=== PATIENT | male | born 1970 | race Caucasian/White ===

== ENCOUNTER 2021-04-04 23:07 | Emergency (ER) | payer MEDICAID, OTHER ==
[2021-04-04] MEDS ORDERED: Acetaminophen/HYDROcodone 325-10 MG Tab PO ONE (23:08)
[2021-04-05 00:28] VITALS: BP 146/86; PULSE 106
--- NOTE | 2021-04-05 00:30 | EDM.PDOC ---
ED HPI GENERAL MEDICAL PROBLEM - General Stated Complaint: RIGHT KNEE PAIN, CAN'T BEND LEG Time Seen by Provider: 04/05/21 00:15 Source of Information: Reports: Patient History Limitations: Reports: No Limitations - History of Present Illness INITIAL COMMENTS - FREE TEXT/NARRATIVE: This 51 yo male patient reports to the ED with increased pain to his right knee and right great toe. The patient believes his pain is from gout. The patient reports he has previously been seen for gout and took medications for a while, but after the pain went away he stopped taking the medications. The patient denies any recent injury to the knee or foot. Onset: Gradual Duration: Day(s):, Constant, Getting Worse Location: Reports: Lower Extremity, Right Quality: Reports: Ache, Sharp, Stabbing Severity: Severe Improves with: Reports: None Worsens with: Reports: None Context: Reports: Other Associated Symptoms: Reports: No Other Symptoms Right Knee Pain Score (Numeric/FACES): 10 - Related Data Allergies Allergy/AdvReac Type Severity Reaction Status Date / Time No Known Allergies Allergy Verified 05/23/18 20:38 Home Meds: Home Meds Acetaminophen [Tylenol] 325 mg PO 04/05/21 [History] Past Medical History - Past Health History Medical/Surgical History: Denies Medical/Surgical History HEENT History: Reports: Impaired Vision Cardiovascular History: Reports: None Respiratory History: Reports: None Gastrointestinal History: Reports: None Genitourinary History: Reports: None Other Musculoskeletal History: tendon release right hand middle finger Neurological History: Reports: None Psychiatric History: Reports: None Endocrine/Metabolic History: Reports: None Hematologic History: Reports: None Immunologic History: Reports: None Oncologic (Cancer) History: Reports: None Dermatologic History: Reports: None Review of Systems - Review of Systems Review Of Systems: Comprehensive ROS is negative, except as noted in HPI. ED EXAM, GENERAL - Physical Exam Exam: See Below Exam Limited By: No Limitations General Appearance: Alert, WD/WN, Moderate Distress Eye Exam: Bilateral Eye: EOMI, Normal Inspection, PERRL Ears: Normal External Exam, Normal Canal, Hearing Grossly Normal, Normal TMs Nose: Normal Inspection, Normal Mucosa, No Blood Throat/Mouth: Normal Inspection, Normal Lips, Normal Teeth, Normal Gums, Normal Oropharynx, Normal Voice, No Airway Compromise Head: Atraumatic, Normocephalic Neck: Full Range of Motion Respiratory/Chest: No Respiratory Distress, Lungs Clear, Normal Breath Sounds, No Accessory Muscle Use Cardiovascular: Normal Peripheral Pulses, Regular Rate, Rhythm (Male) Exam: Deferred Rectal (Males) Exam: Deferred Extremities: Leg Pain (right knee tenderness along medial joint space and right great toe tenderness to palpation of MTP joint) Neurological: Alert, Oriented, CN II-XII Intact, Normal Cognition, Normal Gait, Normal Reflexes, No Motor/Sensory Deficits Psychiatric: Normal Affect, Normal Mood Lymphatic: No Adenopathy Course - Vital Signs Last Recorded V/S: Last Vital Signs Temp 100.5 F 04/05/21 00:24 Pulse 106 H 04/05/21 00:24 Resp 20 04/05/21 00:24 BP 146/86 H 04/05/21 00:24 Pulse Ox 100 04/05/21 00:24 - Orders/Labs/Meds Labs: Laboratory Tests 04/05/21 04/05/21 Range/Units 00:30 00:30 WBC 11.9 H (5.0-10.0) 10^3/uL RBC 5.35 (4.6-6.2) 10^6/uL Hgb 15.9 (14.0-18.0) g/dL Hct 47.8 (40.0-54.0) % MCV 89.3 (80-100) fL MCH 29.7 (27.0-34.0) pg MCHC 33.3 (33.0-35.0) g/dL Plt Count 239 (150-450) 10^3/uL Neut % (Auto) 65.1 (42.2-75.2) % Lymph % (Auto) 22.7 (20.5-50.1) % [place] % (Auto) 10.7 H (2-8) % Eos % (Auto) 1.2 (1.0-3.0) % Baso % (Auto) 0.3 (0.0-1.0) % Sodium 138 (136-145) mmol/L Potassium 4.2 (3.5-5.1) mmol/L Chloride 103 (98-107) mmol/L Carbon Dioxide 28 (21-32) mmol/L Anion Gap 11.2 (7-13) mEq/L BUN 17 (7-18) mg/dL Creatinine 1.36 H (0.70-1.30) mg/dL Est Cr Clr Drug Dosing 63.54 mL/min Estimated GFR (MDRD) 55 BUN/Creatinine Ratio 12.5 (No establ ref range) Glucose 117 H (70-99) mg/dL Uric Acid 7.6 H (3.5-7.2) mg/dL Calcium 8.6 (8.5-10.1) mg/dL Total Bilirubin 0.5 (0.2-1.0) mg/dL AST 10 L (15-37) U/L ALT 36 (16-63) U/L Alkaline Phosphatase 79 (46-116) U/L Total Protein 7.3 (6.4-8.2) g/dL Albumin 3.7 (3.4-5.0) g/dL Globulin 3.6 Albumin/Globulin Ratio 1.0 Meds: Medications Discontinued Medications Generic Name Dose Route Start Last Admin Trade Name Freq PRN Reason Stop Dose Admin Methylprednisolone Sodium Succinate 125 mg 04/05/21 00:56 Methylprednisolone Sodium Succinate 125 Mg/2 Ml Sdv IM 04/05/21 00:57 ONETIME ONE Departure - Departure Time of Disposition: 01:02 Disposition: Home, Self-Care 01 Condition: Fair Clinical Impression: Elevated blood uric acid level Gout of right knee Qualifiers: Gout etiology: unspecified cause Chronicity: acute Qualified Code(s): M10.9 - Gout, unspecified - Discharge Information *PRESCRIPTION DRUG MONITORING PROGRAM REVIEWED*: Not Applicable *COPY OF PRESCRIPTION DRUG MONITORING REPORT IN PATIENT KATHY: Not Applicable Instructions: Low-Purine Eating Plan Forms: ED Department Discharge Care Plan Goals: The patient was advised of the examination and lab results during the visit. The patient was given an injection of SoluMedrol while in the ED. The patient was discharged with a dose of [place] (10/325) #1 to take as needed for pain. The patient was also discharged with a script for Prednisone (20 mg) #10 to take 2 by mouth daily for 5 days. The patient was encourage to follow-up with his primary care facility for continued evaluation and treatment. If the patient has any additional symptoms or concerns, the patient should either return to the emergency department or visit his primary care facility. Sepsis Event Note (ED) - Focused Exam Vital Signs: Vital Signs Temp Pulse Resp BP Pulse Ox 04/05/21 00:24 100.5 F 106 H 20 146/86 H 100
[2021-04-05 00:55] LABS: ANION GAP 11.2 mEq/L (7-13)
[2021-04-05] MEDS ORDERED: methylPREDNISolone Sodium Succinate 125 MG/2 ML SDV IM ONE (00:56)
[2021-04-05] MEDS ORDERED: Acetaminophen/HYDROcodone 325-10 MG Tab ONE (01:02)
== END 2021-04-05 01:13 | disposition home or self-care (01) ==
LOC: DL.ED 23:07
DX: M10.9 Gout, unspecified (principal)
CPT/HCPCS: 36415; 80053; 84550; 85025; 96372; 99283; A9270-GY; J2930

== ENCOUNTER 2021-07-18 13:50 | Emergency (ER) | payer MEDICAID ==
[2021-07-18 14:25] VITALS: BP 163/105; PULSE 113
[2021-07-18] MEDS ORDERED: Lidocaine 1% 30 ML SDV INJECT ONE (14:47)
--- NOTE | 2021-07-18 14:53 | CR ---
PROCEDURE INFORMATION: Exam: XR Left Hand Exam date and time: 07/18/2021 2:42 PM Age: 51 years old Clinical indication: Other: Cut with skill saw TECHNIQUE: Imaging protocol: XR Left hand. Views: 1 or 2 views. Total images: 2 COMPARISON: No relevant prior studies available. FINDINGS: Bones/joints: Soft tissue defects distal 2nd and 3rd fingers. Comminuted/complex fracture distal tuft left 2nd finger. Multiple small bone fragments in this region. Is also a complex comminuted fracture at the base of the 3rd distal phalanx which extends intra-articular. Suggestion of tiny fracture fragment off the articular surface of the distal 3rd middle phalanx as well. Multiple fracture fragments. Soft tissues: See "Bones/joints" finding. IMPRESSION: 1. Comminuted fracture distal tuft left 2nd finger as well as a comminuted intra-articular fracture at the base of the 3rd DIP joint. 2. Associated soft tissue defects distal left 2nd and 3rd fingers.
--- NOTE | 2021-07-18 14:57 | EDM.PDOC ---
<Whitney Echevarria - Last Filed: 07/18/21 14:54> ED HPI GENERAL MEDICAL PROBLEM - General Chief Complaint: Laceration Stated Complaint: [id number] CUT FINGERS Time Seen by Provider: 07/18/21 15:15 Left Finger-Index Pain Score (Numeric/FACES): 5 - Related Data Allergies Allergy/AdvReac Type Severity Reaction Status Date / Time No Known Allergies Allergy Verified 07/18/21 14:20 Home Meds: Home Meds Acetaminophen [Tylenol] 325 mg PO 04/05/21 [History] Past Medical History - Past Health History Medical/Surgical History: Denies Medical/Surgical History HEENT History: Reports: Impaired Vision Cardiovascular History: Reports: None Respiratory History: Reports: None Gastrointestinal History: Reports: None Genitourinary History: Reports: None Musculoskeletal History: Reports: Gout Other Musculoskeletal History: tendon release right hand middle finger Neurological History: Reports: None Psychiatric History: Reports: None Endocrine/Metabolic History: Reports: None Hematologic History: Reports: None Immunologic History: Reports: None Oncologic (Cancer) History: Reports: None Dermatologic History: Reports: None - Infectious Disease History Infectious Disease History: Reports: None Social & Family History - Family History Family Medical History: No Pertinent Family History - Tobacco Use Tobacco Use Status *Q: Never Tobacco User Second Hand Smoke Exposure: No - Caffeine Use Caffeine Use: Reports: Coffee - Recreational Drug Use Recreational Drug Use: No Course - Radiology Interpretation Free Text/Narrative:: Left hand xray; [facility] Final Radiology Report Call: [phone] assistance Online chat: [email or web address] Name: HU COX Age: 51Years M Date: 07/18/2021 SSN: -- : [id number] Study: CR HAND 2V LT Requesting Physician: Whitney Echevarria Images: 2 Addl Studies: Provided Clinical History: cut with skill saw Contrast: Contrast Medium: Contrast Amount: Contrast Method: CONFIDENTIALITY STATEMENT This report is intended only for use by the referring physician, and only in accordance with law. If you received this in error, call [phone]. Page 1 of 1 PROCEDURE INFORMATION: Exam: XR Left Hand Exam date and time: 07/18/2021 2:42 PM Age: 51 years old Clinical indication: Other: Cut with skill saw TECHNIQUE: Imaging protocol: XR Left hand. Views: 1 or 2 views. Total images: 2 COMPARISON: No relevant prior studies available. FINDINGS: Bones/joints: Soft tissue defects distal 2nd and 3rd fingers. Comminuted/complex fracture distal tuft left 2nd finger. Multiple small bone fragments in this region. Is also a complex comminuted fracture at the base of the 3rd distal phalanx which extends intra-articular. Suggestion of tiny fracture fragment off the articular surface of the distal 3rd middle phalanx as well. Multiple fracture fragments. Soft tissues: See "Bones/joints" finding. IMPRESSION: 1. Comminuted fracture distal tuft left 2nd finger as well as a comminuted intra-articular fracture at the base of the 3rd DIP joint. 2. Associated soft tissue defects distal left 2nd and 3rd fingers. Thank you for allowing us to participate in the care of your patient. Dictated and Authenticated by: Delmer Awad MD 07/18/2021 2:53 PM Central Time ([place] & [place]) See rad report Departure - Departure Disposition: Home, Self-Care 01 Clinical Impression: Finger laceration Qualifiers: Encounter type: initial encounter Finger: index finger Damage to nail status: with damage Foreign body presence: without foreign body Laterality: unspecified laterality Qualified Code(s): S61.318A - Laceration without foreign body of other finger with damage to nail, initial encounter - Discharge Information Instructions: Laceration Care, Adult, [id number] Referrals: Uriel Tsang [Primary Care Provider] - Forms: ED Department Discharge Additional Instructions: RX: keflex Keep wound clean and dry for 24 hours. Use Neosporin or bacitracin on the wound and keep it bandaged. Keep stitches in for 10-14 days. If any new symptoms or concerns develop contact your primary care facility or return to the ER. Sepsis Event Note (ED) - Evaluation Sepsis Screening Result: No Definite Risk <Laurent Finley - Last Filed: 07/18/21 16:53> ED HPI GENERAL MEDICAL PROBLEM - General Source of Information: Reports: Patient History Limitations: Reports: No Limitations - History of Present Illness INITIAL COMMENTS - FREE TEXT/NARRATIVE: 51 y/o M was cutting a board with his skill saw above his head and accidently cut his 3rd adn 4th fingers with the saw on his L hand. Pt states his sensation and motor function are still intact. The bleeding was controlled with direct pressure. Pt drove himself to the ER. Tetanus is not up to date. Onset: Today Duration: Hour(s): ED ROS GENERAL - Review of Systems Review Of Systems: Comprehensive ROS is negative, except as noted in HPI. ED EXAM, SKIN/RASH Exam: See Below Exam Limited By: No Limitations General Appearance: Alert, No Apparent Distress Respiratory/Chest: No Respiratory Distress, Lungs Clear, Normal Breath Sounds, No Accessory Muscle Use, Chest Non-Tender Cardiovascular: Normal Peripheral Pulses, Regular Rate, Rhythm, No Edema, No Gallop, No JVD, No Murmur, No Rub Extremities: Other (3rd finger lac starts at the anterior pad of the finger tip and wraps around to the posterior finger lateral to the nail about 5cm long. ) ED SKIN PROCEDURES - Laceration/Wound Repair Left Lower Digit - 2nd (Index) Appearance: Subcutaneous Local Anesthesia - Lidocaine (Xylocaine): 1% Plain Local Anesthetic Volume: 4cc Skin Prep: Saline Exploration/Debridement/Repair: Wound Explored Closed with: Sutures Lac/Wound length In cm: 4 Suture Size: 4-0 # of Sutures: 8 Suture Type: Interrupted Sterile Dressing Applied: Nurse Tetanus Status Addressed: Yes Complications: No Left Upper Digit - 3rd (Middle) Appearance: Subcutaneous Anesthetic Type: Local Local Anesthesia - Lidocaine (Xylocaine): 1% Plain Local Anesthetic Volume: 4cc Skin Prep: Saline Exploration/Debridement/Repair: Wound Explored Closed with: Sutures Lac/Wound length In cm: 6 Suture Size: 4-0 Suture Type: Interrupted Sterile Dressing Applied: Nurse Tetanus Status Addressed: Yes Complications: No Course - Vital Signs Last Recorded V/S: Last Vital Signs Temp 97.5 F 07/18/21 14:24 Pulse 113 H 07/18/21 14:24 Resp 16 07/18/21 14:24 BP 163/105 H 07/18/21 14:24 Pulse Ox 97 07/18/21 14:24 - Orders/Labs/Meds Orders: Active Orders 24 hr Category Date Time Status Vaccine to be Administered/Admin Charge [RC] ASDIRECTED Care 07/18/21 15:08 Active Meds: Medications Discontinued Medications Generic Name Dose Route Start Last Admin Trade Name Freq PRN Reason Stop Dose Admin Bacitracin 1 dose 07/18/21 16:36 07/18/21 16:39 Bacitracin Oint 1 Gm U/D Packet TOP 07/18/21 16:37 1 dose ONETIME ONE Administration Diphtheria/Tetanus/Acell Pertussis 0.5 ml 07/18/21 15:08 07/18/21 15:14 Diphtheria,Pertussis(Acell),Tetanus Vaccine 0.5 Ml Syringe IM 07/18/21 15:09 0.5 ml .ONCE ONE Administration Lidocaine HCl 30 ml 07/18/21 14:47 07/18/21 14:55 Lidocaine 1% 30 Ml Sdv INJECT 07/18/21 14:48 30 ml ONETIME ONE Administration Tetracaine HCl 1 ml 07/18/21 15:01 07/18/21 15:22 Tetracaine Hcl/Pf 0.5% 4 Ml Bottle EYEBOTH 07/18/21 15:02 Not Given ASDIRECTED ONE Departure - Departure Time of Disposition: 16:46 Condition: Good - Discharge Information *PRESCRIPTION DRUG MONITORING PROGRAM REVIEWED*: Not Applicable *COPY OF PRESCRIPTION DRUG MONITORING REPORT IN PATIENT KATHY: Not Applicable Sepsis Event Note (ED) - Focused Exam Vital Signs: Vital Signs Temp Pulse Resp BP Pulse Ox 07/18/21 14:24 97.5 F 113 H 16 163/105 H 97
[2021-07-18] MEDS ORDERED: Tetracaine HCl/PF 0.5% 4 ML Bottle EYEBOTH ONE (15:01)
[2021-07-18] MEDS ORDERED: Diphtheria,Pertussis(Acell),Tetanus Vaccine 0.5 ML Syringe IM ONE (15:08)
[2021-07-18] MEDS ORDERED: Bacitracin Oint 1 GM U/D Packet TOP ONE (16:36)
== END 2021-07-18 17:04 | disposition home or self-care (01) ==
LOC: DL.ED 13:50
DX: S61.311A Laceration without foreign body of left index finger with damage to nail, initial encounter (principal); S61.213A Laceration without foreign body of left middle finger without damage to nail, initial encounter; Z23 Encounter for immunization; W27.0XXA Contact with workbench tool, initial encounter
CPT/HCPCS: 12004; 73120-LT; 90471; 90715; 99283-25

== ENCOUNTER 2022-03-29 05:55 | Day surgery (SDC) | payer MEDICAID ==
[~2022-03-29 05:55] MED LIST: Dextrose 5%-0.45% NaCl 1,000 ML IV SCH; Sodium Chloride 0.9% 10 ML Syringe FLUSH PRN; Sodium Chloride 0.9% 10 ML Syringe FLUSH SCH
[2022-03-29] MEDS ORDERED: Midazolam 1 MG/ML 2 ML SDV IV ONE ×7 (05:56→07:31)
[2022-03-29] MEDS ORDERED: fentaNYL 100 MCG/2 ML SDV ITHECAL ONE (05:56)
[2022-03-29] MEDS ORDERED: Dextrose 5%-0.45% NaCl 1,000 ML IV SCH (06:00)
[2022-03-29] MEDS ORDERED: Sodium Chloride 0.9% 10 ML Syringe FLUSH PRN (06:00)
[2022-03-29] MEDS ORDERED: Midazolam 1 MG/ML 2 ML SDV ONE (06:15)
[2022-03-29] MEDS ORDERED: fentaNYL 100 MCG/2 ML SDV ONE (06:16)
[2022-03-29] MEDS ORDERED: fentaNYL 100 MCG/2 ML SDV IV ONE ×3 (07:23→07:34)
[2022-03-29 09:36] VITALS: BP 111/85; PULSE 68
== END 2022-03-29 09:50 | disposition home or self-care (01) ==
LOC: DL.ENDO 05:55
PROVIDERS: ATTEND Internal Medicine Gastroenterology
DX: D12.2 Benign neoplasm of ascending colon (principal); K51.40 Inflammatory polyps of colon without complications; E66.09 Other obesity due to excess calories; R73.9 Hyperglycemia, unspecified; E55.9 Vitamin D deficiency, unspecified; E78.5 Hyperlipidemia, unspecified; F41.1 Generalized anxiety disorder; H91.90 Unspecified hearing loss, unspecified ear; Z01.812 Encounter for preprocedural laboratory examination; Z20.822 Contact with and (suspected) exposure to COVID-19; Z68.36 Body mass index [BMI] 36.0-36.9, adult
CPT/HCPCS: J2250; J3010; J7042; U0002

== ENCOUNTER 2023-09-29 22:42 | Inpatient (IN) | payer BC, MEDICAID ==
[2023-09-29] MEDS ORDERED: Ondansetron 4 MG/2 ML SDV IVPUSH ONE (23:05)
[2023-09-29] MEDS ORDERED: Morphine 4 MG/ML Syringe IVPUSH ONE (23:06)
[2023-09-29 23:14] LABS: BASOPHILS PERCENT AUTO 0.3 % (0.0-1.0); EOSINOPHILS PERCENT AUTO 1.8 % (1.0-3.0); HEMATOCRIT 49.5 % (40.0-54.0); HEMOGLOBIN 16.8 g/dL (14.0-18.0); LYMPHOCYTES PERCENT AUTO 18.6 % (20.5-50.1); MEAN CORPUSCULAR HGB CONC 33.9 g/dL (33.0-35.0); MEAN CORPUSCULAR VOLUME 88.4 fL (80-100); MONOCYTES PERCENT AUTO 6.9 % (2-8); NEUTROPHILS PERCENT AUTO 72.4 % (42.2-75.2); PLATELET COUNT,PLT 281 10^3/uL (150-450); WHITE BLOOD CELL COUNT,WBC 15.8 10^3/uL (5.0-10.0)
[2023-09-29 23:28] LABS: A/G RATIO 1.3; ALBUMIN 4.4 g/dL (3.4-5.0); ANION GAP 12.1 mEq/L (7-13); BILIRUBIN TOTAL 0.4 mg/dL (0.2-1.0); BUN/CREATININE RATIO 16.9 (No establ ref range); CALCIUM 9.7 mg/dL (8.5-10.1); CREATININE 1.18 mg/dL (0.70-1.30); EST CRCL DRUG DOSING (CG) 71.57 mL/min; POTASSIUM,K 4.1 mmol/L (3.5-5.1); PROTEIN TOTAL,TP 7.9 g/dL (6.4-8.2)
[2023-09-29] MEDS ORDERED: Iopamidol 612 MG/ML 100 ML Bottle IVPUSH ONE (23:35)
[2023-09-29] MEDS ORDERED: Lactated Ringers 1,000 ML IV ONE (23:38)
[2023-09-30] MEDS ORDERED: Lactated Ringers 1,000 ML IV ONE (01:30)
[2023-09-30] MEDS ORDERED: Lidocaine 2% Viscous Solution 15 ML UD PO ONE (01:47)
[2023-09-30] MEDS ORDERED: Benzocaine 20% Topical Spray UD MUCMEM ONE (01:48)
[2023-09-30] MEDS ORDERED: Ketorolac 30 MG/ML SDV IVPUSH PRN ×2 (02:28→08:25)
[2023-09-30] MEDS ORDERED: HYDROmorphone 0.5 MG/0.5 ML Syringe IVPUSH PRN (02:28)
[2023-09-30] MEDS ORDERED: Polyethylene Glycol 3350 Powder 17 GM Packet PO PRN (02:28)
[2023-09-30] MEDS ORDERED: Acetaminophen 325 MG Tab PO PRN (02:28)
[2023-09-30] MEDS ORDERED: Albuterol/Ipratropium 3.0-0.5 MG/3 ML Neb Soln NEB PRN (02:28)
[2023-09-30] MEDS ORDERED: Sennosides/Docusate Sodium 50-8.6 MG Tab PO PRN (02:28)
[2023-09-30] MEDS ORDERED: Magnesium Hydroxide 400 MG/5 ML Susp 30 ML Cup PO PRN (02:28)
[2023-09-30] MEDS ORDERED: Metoclopramide 10 MG/2 ML SDV IVPUSH ONE (02:30)
[2023-09-30] MEDS ORDERED: Dextrose 5%-0.9% NaCl 1,000 ML IV SCH (02:45)
[2023-09-30] MEDS ORDERED: Pantoprazole 40 MG Vial IVPUSH ONE (03:01)
[2023-09-30] MEDS ORDERED: Metoprolol Tartrate 5 MG/5 ML SDV IVPUSH PRN (03:13)
[2023-09-30] MEDS ORDERED: hydrALAZINE 20 MG/ML SDV IVPUSH PRN (03:13)
[2023-09-30] MEDS: Magnesium Sulfate/Water 2 GM in Premix Bag 1 BAG IV ONE ×2 (03:23→06:06)
[2023-09-30 05:03] LABS: BASOPHILS PERCENT AUTO 0.3 % (0.0-1.0); EOSINOPHILS PERCENT AUTO 0.7 % (1.0-3.0); HEMATOCRIT 43.8 % (40.0-54.0); HEMOGLOBIN 14.6 g/dL (14.0-18.0); LYMPHOCYTES PERCENT AUTO 18.8 % (20.5-50.1); MEAN CORPUSCULAR HEMOGLOBIN 29.5 pg (27.0-34.0); MEAN CORPUSCULAR HGB CONC 33.3 g/dL (33.0-35.0); MEAN CORPUSCULAR VOLUME 88.5 fL (80-100); MONOCYTES PERCENT AUTO 6.3 % (2-8); NEUTROPHILS PERCENT AUTO 73.9 % (42.2-75.2); PLATELET COUNT,PLT 240 10^3/uL (150-450); RED BLOOD CELL COUNT 4.95 10^6/uL (4.6-6.2); WHITE BLOOD CELL COUNT,WBC 10.3 10^3/uL (5.0-10.0)
[2023-09-30 05:21] LABS: HEMOGLOBIN A1C 5.3 % (<5.7)
[2023-09-30 05:22] LABS: A/G RATIO 1.3; ALBUMIN 3.6 g/dL (3.4-5.0); ANION GAP 9.9 mEq/L (7-13); BILIRUBIN TOTAL 0.4 mg/dL (0.2-1.0); BUN/CREATININE RATIO 11.7 (No establ ref range); CALCIUM 8.6 mg/dL (8.5-10.1); CREATININE 1.03 mg/dL (0.70-1.30); EST CRCL DRUG DOSING (CG) 81.99 mL/min; MAGNESIUM 2.1 mg/dL (1.8-2.4); POTASSIUM,K 3.9 mmol/L (3.5-5.1); PROTEIN TOTAL,TP 6.4 g/dL (6.4-8.2)
[2023-09-30] MEDS: Pantoprazole 40 MG Vial IVPUSH SCH ×2 (08:39→21:34)
[2023-09-30] MEDS: Metoclopramide 10 MG/2 ML SDV IVPUSH SCH ×4 (08:39→20:00)
[2023-09-30] MEDS: Hydrochlorothiazide/Triamterene 25-37.5 Tab PO SCH (08:49)
[2023-10-01] MEDS: Metoclopramide 10 MG/2 ML SDV IVPUSH SCH ×5 (00:02→16:28)
[2023-10-01 06:49] LABS: BASOPHILS PERCENT AUTO 0.3 % (0.0-1.0); EOSINOPHILS PERCENT AUTO 2.2 % (1.0-3.0); HEMATOCRIT 46.1 % (40.0-54.0); HEMOGLOBIN 15.3 g/dL (14.0-18.0); LYMPHOCYTES PERCENT AUTO 15.1 % (20.5-50.1); MEAN CORPUSCULAR HEMOGLOBIN 29.5 pg (27.0-34.0); MEAN CORPUSCULAR HGB CONC 33.2 g/dL (33.0-35.0); MEAN CORPUSCULAR VOLUME 88.8 fL (80-100); MONOCYTES PERCENT AUTO 7.8 % (2-8); NEUTROPHILS PERCENT AUTO 74.6 % (42.2-75.2); PLATELET COUNT,PLT 251 10^3/uL (150-450); RED BLOOD CELL COUNT 5.19 10^6/uL (4.6-6.2); WHITE BLOOD CELL COUNT,WBC 11.5 10^3/uL (5.0-10.0)
[2023-10-01 07:19] LABS: A/G RATIO 1.2; ALBUMIN 3.7 g/dL (3.4-5.0); ANION GAP 11.7 mEq/L (7-13); BILIRUBIN TOTAL 0.7 mg/dL (0.2-1.0); BUN/CREATININE RATIO 11.5 (No establ ref range); CALCIUM 8.4 mg/dL (8.5-10.1); CREATININE 1.04 mg/dL (0.70-1.30); EST CRCL DRUG DOSING (CG) 81.2 mL/min; MAGNESIUM 2.1 mg/dL (1.8-2.4); POTASSIUM,K 3.7 mmol/L (3.5-5.1); PROTEIN TOTAL,TP 6.8 g/dL (6.4-8.2)
[2023-10-01] MEDS: Pantoprazole 40 MG Vial IVPUSH SCH (09:11)
[2023-10-01] MEDS: Hydrochlorothiazide/Triamterene 25-37.5 Tab PO SCH (09:11)
[2023-10-01 16:54] VITALS: BP 105/47; PULSE 89
== END 2023-10-01 19:00 | disposition home or self-care (01) | DRG 389 ==
LOC: DL.ED 22:42 → DL.MS 09-30 02:14
PROVIDERS: ADMIT Internal Medicine; ATTEND Internal Medicine
DX: K91.31 Postprocedural partial intestinal obstruction (principal); K43.6 Other and unspecified ventral hernia with obstruction, without gangrene; M19.90 Unspecified osteoarthritis, unspecified site; G89.29 Other chronic pain; M10.9 Gout, unspecified; E78.5 Hyperlipidemia, unspecified; M54.9 Dorsalgia, unspecified; E55.9 Vitamin D deficiency, unspecified; F43.10 Post-traumatic stress disorder, unspecified; E66.9 Obesity, unspecified; K80.20 Calculus of gallbladder without cholecystitis without obstruction; E78.00 Pure hypercholesterolemia, unspecified; D72.829 Elevated white blood cell count, unspecified; R73.9 Hyperglycemia, unspecified; Y83.8 Other surgical procedures as the cause of abnormal reaction of the patient, or of later complication, without mention of misadventure at the time of the procedure; R12 Heartburn; I10 Essential (primary) hypertension; Z79.899 Other long term (current) drug therapy; Z86.010 Personal history of colon polyps; Z98.890 Other specified postprocedural states; Z68.36 Body mass index [BMI] 36.0-36.9, adult
CPT/HCPCS: 36415; 74018; 74177; 80053; 80061; 83036; 83605; 83690; 83735; 84484; 85025; 86140; 93005; 93010; 96361; 96374; 96375; 99284; 99285-25; A9270-GY; C9113; J2270; J2405; J2765; J3475; J7042; J7120; Q9967

== ENCOUNTER 2024-05-14 18:22 | Emergency (ER) | payer OTHER ==
[2024-05-14 19:06] LABS: BASOPHILS PERCENT AUTO 0.4 % (0.0-1.0); EOSINOPHILS PERCENT AUTO 0.9 % (1.0-3.0); HEMATOCRIT 46.3 % (40.0-54.0); HEMOGLOBIN 15.3 g/dL (14.0-18.0); LYMPHOCYTES PERCENT AUTO 18.1 % (20.5-50.1); MEAN CORPUSCULAR HEMOGLOBIN 29.7 pg (27.0-34.0); MEAN CORPUSCULAR VOLUME 89.7 fL (80-100); MONOCYTES PERCENT AUTO 7.6 % (2-8); PLATELET COUNT,PLT 266 10^3/uL (150-450); RED BLOOD CELL COUNT 5.16 10^6/uL (4.6-6.2); WHITE BLOOD CELL COUNT,WBC 12.8 10^3/uL (5.0-10.0)
[2024-05-14] MEDS: Vancomycin 2 GM in Sodium Chloride 0.9% 500 ML IV ONE (19:22)
[2024-05-14] MEDS: Sodium Chloride 0.9% 10 ML Syringe FLUSH PRN (19:27)
[2024-05-14 19:30] LABS: LACTIC ACID 1.5 mmol/L (0.4-2.0)
[2024-05-14 19:33] LABS: A/G RATIO 1.1; ALANINE AMINOTRANSFERASE,ALT 26 U/L (16-63); ALBUMIN 3.9 g/dL (3.4-5.0); ALKALINE PHOSPHATASE 84 U/L (46-116); ASPARTATE AMNIOTRANSFERASE,AST 12 U/L (15-37); BILIRUBIN TOTAL 0.5 mg/dL (0.2-1.0); BLOOD UREA NITROGEN,BUN 13 mg/dL (7-18); BUN/CREATININE RATIO 10.9 (No establ ref range); C-REACTIVE PROTEIN 4.13 ng/dL (<=0.50); CALCIUM 9.2 mg/dL (8.5-10.1); CARBON DIOXIDE,CO2 26 mmol/L (21-32); CHLORIDE,CL 101 mmol/L (98-107); CREATININE 1.19 mg/dL (0.70-1.30); GLUCOSE RANDOM 148 mg/dL (70-99); PROTEIN TOTAL,TP 7.6 g/dL (6.4-8.2); SODIUM,NA 138 mmol/L (136-145)
[2024-05-14 19:34] LABS: ESTIMATED GFR 72 mL/min (>=60)
[2024-05-14] MEDS: Ketorolac 30 MG/ML SDV IVPUSH ONE (20:00)
[2024-05-14 21:00] VITALS: BP 119/82; PULSE 102
== END 2024-05-14 21:39 | disposition home or self-care (01) ==
LOC: DL.ED 18:22
DX: L73.9 Follicular disorder, unspecified (principal); E78.00 Pure hypercholesterolemia, unspecified; Z79.899 Other long term (current) drug therapy; Z86.16 Personal history of COVID-19
CPT/HCPCS: 36415; 80053; 83605; 84145; 85025; 86140; 87040; 96365; 96366; 96375; 99283; J1885; J3370; J7040; J3490

== ENCOUNTER 2024-07-23 09:50 | Emergency (ER) | payer OTHER ==
[2024-07-23 10:14] LABS: BASOPHILS PERCENT AUTO 0.5 % (0.0-1.0); EOSINOPHILS PERCENT AUTO 2.5 % (1.0-3.0); HEMATOCRIT 48.1 % (40.0-54.0); LYMPHOCYTES PERCENT AUTO 32.5 % (20.5-50.1); MEAN CORPUSCULAR HEMOGLOBIN 29.2 pg (27.0-34.0); MEAN CORPUSCULAR HGB CONC 33.3 g/dL (33.0-35.0); MEAN CORPUSCULAR VOLUME 87.8 fL (80-100); MONOCYTES PERCENT AUTO 7.5 % (2-8); PLATELET COUNT,PLT 248 10^3/uL (150-450); RED BLOOD CELL COUNT 5.48 10^6/uL (4.6-6.2); WHITE BLOOD CELL COUNT,WBC 6.1 10^3/uL (5.0-10.0)
[2024-07-23 10:37] LABS: A/G RATIO 1.2; ALANINE AMINOTRANSFERASE,ALT 32 U/L (16-63); ALKALINE PHOSPHATASE 73 U/L (46-116); ANION GAP 14.2 mEq/L (7-13); ASPARTATE AMNIOTRANSFERASE,AST 14 U/L (15-37); BILIRUBIN TOTAL 0.5 mg/dL (0.2-1.0); BLOOD UREA NITROGEN,BUN 13 mg/dL (7-18); BUN/CREATININE RATIO 12.4 (No establ ref range); CALCIUM 9.2 mg/dL (8.5-10.1); CARBON DIOXIDE,CO2 27 mmol/L (21-32); CHLORIDE,CL 103 mmol/L (98-107); CREATININE 1.05 mg/dL (0.70-1.30); ESTIMATED GFR 84 mL/min (>=60); GLUCOSE RANDOM 146 mg/dL (70-99); MAGNESIUM 2.1 mg/dL (1.8-2.4); POTASSIUM,K 4.2 mmol/L (3.5-5.1); PROTEIN TOTAL,TP 7.4 g/dL (6.4-8.2); SODIUM,NA 140 mmol/L (136-145)
[2024-07-23 10:58] VITALS: BP 101/64; PULSE 92
[2024-07-23] MEDS: GI Cocktail Oral Solution 30 ML PO ONE (11:32)
== END 2024-07-23 12:43 | disposition home or self-care (01) ==
LOC: DL.ED 09:50
DX: R07.89 Other chest pain (principal); E78.00 Pure hypercholesterolemia, unspecified; Z86.16 Personal history of COVID-19; Z79.899 Other long term (current) drug therapy
CPT/HCPCS: 36415; 71045; 80053; 83735; 84484; 85025; 85379; 87804; 93005; 99285; A9270-GY; U0002